=== PATIENT | female | born 1935 | race Caucasian/White ===

== ENCOUNTER 2016-08-02 09:47 | Outpatient (CLI) | payer MEDICARE ==
[2016-08-02 10:44] LABS: Anion Gap 16 mmol/L (10-20); BUN (Urea Nitrogen) 25 mg/dL (9.8-20.1); Calc. Creatinine Clearance 0 mL/min (70-130); Calcium 10.1 mg/dL (7.8-10.44); Carbon Dioxide 33 mmol/L (23-31); Chloride 91 mmol/L (98-107); Estimated GFR-MDRD 50; LDL Cholesterol, Calculated 75 mg/dL
[2016-08-02 11:20] LABS: Hemoglobin A1c 5.9 % (4.0-6.0)
[2016-08-02 11:46] LABS: #Basophils 0.1 thou/uL (0.0-0.2); #Monocytes 0.5 thou/uL (0.11-0.59); %Basophils 1.3 % (0.0-1.0); %Eosinophils 0.8 % (0.0-10.0); %Lymphocytes 21.8 % (21.0-51.0); %Monocytes 11.2 % (0.0-10.0); Hematocrit 37.4 % (36.0-47.0); Mean Platelet Volume 6.9 fL (7.4-10.4); Red Blood Cell (RBC) Count 4.03 mill/uL (4.20-5.40); White Blood Cell (WBC) Count 4.7 thou/uL (4.8-10.8)
== END 2016-08-02 09:48 | disposition home or self-care (01) ==
LOC: NAVSJIPCSP 09:47
PROVIDERS: ATTEND Internal Medicine
DX: E78.5 Hyperlipidemia, unspecified (principal); I11.0 Hypertensive heart disease with heart failure; E11.51 Type 2 diabetes mellitus with diabetic peripheral angiopathy without gangrene; I25.10 Atherosclerotic heart disease of native coronary artery without angina pectoris
CPT/HCPCS: 36415; 80048; 80061; 83036; 85025

== ENCOUNTER 2017-03-20 19:28 | Inpatient (IN) | payer MEDICARE ==
[2017-03-20] MEDS ORDERED: Acetaminophen 500 MG TAB PO PRN (21:16)
[2017-03-20] MEDS ORDERED: HumaLOG 300 UNITS/3 ML VIAL SC PRN ×2 (21:17)
[2017-03-20] MEDS ORDERED: Dextrose 5% in Water 1,000 ML IV PRN (21:17)
[2017-03-20] MEDS ORDERED: Dextrose 50% Abboject 50 ML SYRINGE SLOW IVP PRN (21:17)
[2017-03-21 05:20] LABS: Eosinophils 2 % (0-10); Hemoglobin 10.4 g/dL (12.0-16.0); Lymphocytes 26 % (21-51); MDiff Complete? YES; Mean Corpuscular HGB CONC 30.4 g/dL (32.0-36.0); Mean Corpuscular Hemoglobin 27.5 pg (27.0-31.0); Mean Corpuscular Volume 90.4 fl (81.0-99.0); Mean Platelet Volume 6.6 fL (7.4-10.4); Monocytes 17 % (0-10); Neutrophil 54 % (42-75); PLT Morphology Comment Appears Adequate; Platelet Count 206 thou/uL (130-400); RBC Distribution Width 17.1 % (11.5-14.5); RBC Morphology Normal; Red Blood Cell (RBC) Count 3.77 mill/uL (4.20-5.40); White Blood Cell (WBC) Count 3.6 thou/uL (4.8-10.8)
[2017-03-21 05:32] LABS: Anion Gap 12 mmol/L (10-20); BUN (Urea Nitrogen) 25 mg/dL (9.8-20.1); Calc. Creatinine Clearance 35 mL/min (70-130); Calcium 9.7 mg/dL (7.8-10.44); Carbon Dioxide 34 mmol/L (23-31); Chloride 94 mmol/L (98-107); Estimated GFR-MDRD 58; Glucose 97 mg/dL (83-110); Potassium 4.2 mmol/L (3.5-5.1); Sodium 136 mmol/L (136-145)
[2017-03-21] MEDS: Potassium Chloride 20 MEQ TAB PO SCH ×3 (08:47→17:01)
[2017-03-21] MEDS: Furosemide 40 MG TAB PO SCH ×2 (08:47→21:28)
[2017-03-21] MEDS: metFORMIN 500 MG TAB PO SCH ×2 (08:48→17:01)
[2017-03-21] MEDS ORDERED: rOPINIRole HCl 0.5 MG TAB PO SCH (09:00)
[2017-03-21] MEDS ORDERED: PILOCARPINE HCL 5 MG PO SCH (09:00)
[2017-03-21] MEDS ORDERED: FLU VACC QS2017-18 36 mo. & older 0.5 ML SYRINGE IM ONE (09:00)
[2017-03-21] MEDS ORDERED: rOPINIRole HCl 1 MG TAB PO SCH (09:45)
--- NOTE | 2017-03-21 14:02 | HP ---
DATE OF ADMISSION: 03/20/2017 DATE OF EXAMINATION AND DICTATION: 03/21/2017 PRINCIPAL DIAGNOSIS: Improving acute on chronic systolic congestive heart failure and deconditionin g for therapy. BRIEF HISTORY: This is a very pleasant 82-year-old female who is well known to me, but [place] moved over to the [facility] the last year and a half and apparently has had multiple admissi ons to the hospital for worsening episodes of congestive heart failure. She was admitted on 017 with leg swelling and shortness of breath and was noticed to have pleural effusion 3+ edema and acute on chronic congestive heart failure. She was treated with IV diuretics and has improved. She also has critical aortic stenosis, but family does not want any intervention. She was switched ove r to oral diuretics and has been sent here for therapy. She has lost quite a bit of weight since I last saw her, her leg swelling has pretty much resolved. She continues to have a dry hacky cough an d has been having some coughing episodes with eating. I advised speech therapy to see her and they really do not think she is safe for any p.o. intake, but family do not want a PEG tube and so she is going to be on a pureed diet with aspiration precautions and nectar thick liquids. Family aware of the risks, family wants her to be DNR and if she does not improve, they want her to go home on hosp ice. Currently, she denies any chest pain. She does have some shortness of breath. Denies any fev er or chills. Denies any nausea or vomiting. Does have poor appetite. PAST MEDICAL HISTORY: 1. Coronary artery disease, ejection fraction 55%, severe critical aortic stenosis with an aortic v alve area of 0.4. 2. Hypertension. 3. Chronic systolic congestive heart failure. 4. Diabetes mellitus type 2. 5. Dyslipidemia, unable to tolerate statin. 6. Lower extremity venous insufficiency and stasis dermatitis. 7. Status post pacemaker placement for sick sinus syndrome and atrial fibrillation. PAST SURGICAL HISTORY: 1. Coronary artery bypass grafting. 2. Pacemaker placement. ALLERGIES: STATIN. PSYCHOSOCIAL HISTORY: She quit smoking in 1982. FAMILY HISTORY: Noncontributory to current admission. MEDICATIONS: She has been admitted here with the following medications: Lasix 40 mg b.i.d., metfor min 500 mg b.i.d., Toprol-XL 50 mg b.i.d., Protonix 40 mg daily, pilocarpine 5 mg t.i.d., potassium chloride 20 mEq daily, Requip 1 mg b.i.d. REVIEW OF SYSTEMS: CARDIOVASCULAR: Denies any chest pain. Does have some shortness of breath and dyspnea on exertion. RESPIRATORY: Occasional cough, denies any hemoptysis, denies any pleuritic type chest pain. GASTROINTESTINAL: Anorexia. Denies any nausea, vomiting, diarrhea, constipation, hematemesis, wali na, or hematochezia. GENITOURINARY: Denies any frequency, urgency, dysuria or hematuria. CENTRAL NERVOUS SYSTEM: Generalized weakness. HEENT: Does have some difficulty with swallowing. PHYSICAL EXAMINATION: GENERAL: Pleasant 82-year-old female, very frail and cachectic, in no acute distress. He r spouse is in the room. VITAL SIGNS: She is afebrile. Heart rate is 86, respirations 20, oxygen saturation 98% on 2 liters , blood pressure 106/56. NEUROLOGIC: Normocephalic and atraumatic. Bitemporal muscle wasting. Pupils equally reacting to l ight. No JVD. CARDIOVASCULAR: S1, S2 plus irregularly irregular. She does have 3/6 systolic murmur heard in the aortic area. RESPIRATORY: Normal vesicular breath sounds with occasional crackles in the bases. ABDOMEN: Soft and nontender, bowel sounds heard in all quadrants. EXTREMITIES: Without cyanosis, clubbing, evidence for chronic stasis dermatitis, trace edema. CENTRAL NERVOUS SYSTEM: Grossly nonfocal except for dysphagia and generalized weakness. LABORATORY VALUES: From this morning shows a white count of 3.6, H\T\H is 10.4 and 34.1. Sodium 13 6, potassium 4.2, BUN and creatinine is 25 and 0.92, blood sugars are 115 and 109. BNP is 793.6. IMPRESSION: 1. Resolving acute on chronic systolic congestive heart failure. 2. Chronic systolic congestive heart failure. 3. Critical aortic stenosis with an area of 0.4 cm. 4. Diabetes mellitus type 2. 5. Hypertension. 6. Dyslipidemia, unable to tolerate statin. 7. Atrial fibrillation and sick sinus syndrome requiring pacemaker placement. 8. Coronary artery disease status post coronary artery bypass graft. 9. Lower extremity venous insufficiency and stasis. 10. Significant deconditioning and dysphagia. 11. DNR status. PLAN: 1. Continue current medications. 2. Heart healthy diet. 3. Pureed diet with nectar thick liquids with aspiration precautions. 4. Accu-Chek with sliding scale coverage. 5. Glucerna. 6. PlexiPulses. 7. Decubitus precautions. 8. Routine laboratory values. 9. Poor prognosis. 10. Estimated length of stay 7-10 days. 11. If she does not improve, family wants to take her home with hospice. Discussed with the patien t and spouse in detail along with the [id number] and all questions answered.
[2017-03-21] MEDS: rOPINIRole HCl 1 MG TAB PO SCH (21:28)
[2017-03-22] MEDS: Furosemide 40 MG TAB PO SCH (08:13)
[2017-03-22] MEDS: metFORMIN 500 MG TAB PO SCH ×2 (08:13→17:32)
[2017-03-22] MEDS: rOPINIRole HCl 1 MG TAB PO SCH ×2 (08:14→20:16)
[2017-03-22] MEDS: Potassium Chloride 20 MEQ TAB PO SCH ×3 (08:15→17:32)
--- NOTE | 2017-03-22 12:40 | PRG ---
DATE OF SERVICE: 03/22/2017 SUBJECTIVE: Ms. Stanley is doing well. Denies any complaints, tolerating her pureed diet. Denies any chest pain or shortness of breath, had to have a Watkins catheter placed. OBJECTIVE: VITAL SIGNS: She is afebrile, heart rate is 90, respirations are 18, oxygen saturation is 98% and b lood pressure is 105/54. CARDIOVASCULAR: S1, S2 plus. RESPIRATORY: Normal vesicular breath sounds. ABDOMEN: Soft, nontender, bowel sounds heard in all quadrants. EXTREMITIES: Without cyanosis or clubbing. CENTRAL NERVOUS SYSTEM: Generalized weakness. IMPRESSION: 1. Acute on chronic systolic congestive heart failure. 2. Paroxysmal atrial fibrillation. 3. Diabetes mellitus type 2. 4. Hypertension. 5. Dyslipidemia. 6. Restless leg syndrome. PLAN: 1. Decrease Lasix to 40 mg daily. 2. Recheck laboratory values in the morning. 3. PT, OT evaluate and treat. 4. DVT prophylaxis. 5. Decubitus precautions. 6. Nutritional support with aspiration precautions. 7. Discussed with the patient and spouse in detail and all questions answered.
[2017-03-23 05:55] LABS: Anion Gap 15 mmol/L (10-20); BUN (Urea Nitrogen) 29 mg/dL (9.8-20.1); Calc. Creatinine Clearance 36 mL/min (70-130); Calcium 9.9 mg/dL (7.8-10.44); Carbon Dioxide 35 mmol/L (23-31); Chloride 98 mmol/L (98-107); Estimated GFR-MDRD 61; Glucose 105 mg/dL (83-110); Potassium 4.6 mmol/L (3.5-5.1); Sodium 143 mmol/L (136-145)
[2017-03-23] MEDS: Furosemide 40 MG TAB PO SCH (08:27)
[2017-03-23] MEDS: metFORMIN 500 MG TAB PO SCH ×3 (08:28→18:01)
[2017-03-23] MEDS: rOPINIRole HCl 1 MG TAB PO SCH ×2 (08:28→20:21)
[2017-03-23] MEDS: Potassium Chloride 20 MEQ TAB PO SCH ×2 (08:28→12:15)
--- NOTE | 2017-03-23 13:58 | PRG ---
DATE OF SERVICE: 03/23/2017 SUBJECTIVE: Ms. Stanley is doing well. She accidentally pulled her Watkins catheter out yesterday. She has been able to void since then and we are continuing to monitor her urine output. We will montague ve a bladder scan if she has no urine output in 6 hours and if necessary, we will replace the Watkins, but seems like she is doing well at this point. She is also getting stronger and speech therapy montague s switched her back to a mechanically soft diet from this morning. OBJECTIVE: VITAL SIGNS: She is afebrile, heart rate is 84, respirations are 20, oxygen saturation is 100% on 1 .5 liters, blood pressure is 131/58, and I's and O's still negative. Her Lasix was decreased to onc e a day instead of twice a day. Her potassium will be decreased from 3 times a day to twice a day a nd we will switch her to potassium liquid as she has trouble swallowing the big pills. CARDIOVASCULAR SYSTEM: S1 and S2 plus. RESPIRATORY SYSTEM: Normal vesicular breath sounds. ABDOMEN: Soft, nontender, bowel sounds heard in all quadrants. EXTREMITIES: Chronic stasis dermatitis. No edema. LABORATORY DATA: Laboratory values from this morning shows sodium of 143, potassium is 4.6, BUN and creatinine is 29 and 0.88. Blood sugars are 117, 96, 115, and 90. BNP is down to 637. IMPRESSION: 1. Improving acute on chronic systolic congestive heart failure. 2. Coronary artery disease. 3. Atrial fibrillation, status post pacemaker placement. 4. Diabetes mellitus type 2. 5. Hypertension. 6. Dyslipidemia, unable to tolerate statins. 7. Improving deconditioning. 8. Lower extremity venous insufficiency. 9. Restless legs syndrome. PLAN: 1. Continue current medications. 2. In fact, I will cut her potassium down to once a day with her potassium being high normal and he r Lasix is down to once a day. 3. Continue nutritional support. 4. Aspiration precautions. 5. Accu-Cheks. 6. DVT prophylaxis with PlexiPulses. 7. Decubitus precautions. 8. Stress ulcer prophylaxis.
[2017-03-24] MEDS: metFORMIN 500 MG TAB PO SCH ×2 (07:57→17:36)
[2017-03-24] MEDS: Furosemide 40 MG TAB PO SCH (07:58)
[2017-03-24] MEDS: rOPINIRole HCl 1 MG TAB PO SCH ×2 (07:58→20:19)
--- NOTE | 2017-03-24 08:26 | PRG ---
DATE OF SURGERY: 03/24/2017 SUBJECTIVE: Ms. Stanley is doing well. She is tolerating her mechanically soft diet. She denies any concerns or questions. Her is in the room. Her I's and O's remain negative. Weights h ave not been documented for the last 2 days. OBJECTIVE: VITAL SIGNS: She is afebrile, heart rate 84, respirations 20, oxygen saturation is 97% on 2 liters, blood pressure is 95/53. CARDIOVASCULAR SYSTEM: S1 and S2 plus. RESPIRATORY SYSTEM: Normal vesicular breath sounds. ABDOMEN: Soft, nontender, bowel sounds heard in all quadrants. EXTREMITIES: Without cyanosis or clubbing. Chronic stasis dermatitis and venous insufficiency. CENTRAL NERVOUS SYSTEM: Improving deconditioning and dysphagia. IMPRESSION: 1. Improving acute on chronic systolic congestive heart failure. 2. Coronary artery disease, status post coronary artery bypass graft. 3. History of atrial fibrillation, status post pacemaker placement. 4. Restless leg syndrome. 5. Hypertension. 6. Dyslipidemia. 7. Deconditioning. 8. Diabetes mellitus, type 2. PLAN: 1. Daily weights. 2. Titrate oxygen. 3. Continue current medications. 4. Nutritional support with aspiration precautions. 5. Monitor Accu-Cheks. 6. PlexiPulse for DVT prophylaxis. 7. Recheck BMP and BNP in the morning. 8. Dr. Dwight Reyes on-call this weekend. 9. Discussed with patient and spouse in detail and all questions answered.
[2017-03-25 05:45] LABS: Anion Gap 13 mmol/L (10-20); BUN (Urea Nitrogen) 34 mg/dL (9.8-20.1); Calc. Creatinine Clearance 26 mL/min (70-130); Calcium 10.2 mg/dL (7.8-10.44); Carbon Dioxide 36 mmol/L (23-31); Chloride 99 mmol/L (98-107); Estimated GFR-MDRD 42; Glucose 114 mg/dL (83-110); Potassium 5.4 mmol/L (3.5-5.1); Sodium 143 mmol/L (136-145)
[2017-03-25] MEDS: rOPINIRole HCl 1 MG TAB PO SCH ×2 (08:30→21:46)
[2017-03-25] MEDS: metFORMIN 500 MG TAB PO SCH ×2 (08:30→17:23)
[2017-03-25] MEDS: Furosemide 40 MG TAB PO SCH (08:30)
[2017-03-26] MEDS: Furosemide 40 MG TAB PO SCH (08:32)
[2017-03-26] MEDS: metFORMIN 500 MG TAB PO SCH ×2 (08:32→17:06)
[2017-03-26] MEDS: rOPINIRole HCl 1 MG TAB PO SCH ×2 (08:32→20:12)
[2017-03-26 10:05] LABS: Anion Gap 15 mmol/L (10-20); BUN (Urea Nitrogen) 31 mg/dL (9.8-20.1); Calc. Creatinine Clearance 28 mL/min (70-130); Calcium 9.7 mg/dL (7.8-10.44); Carbon Dioxide 33 mmol/L (23-31); Chloride 96 mmol/L (98-107); Estimated GFR-MDRD 48; Glucose 137 mg/dL (83-110); Potassium 4.5 mmol/L (3.5-5.1); Sodium 139 mmol/L (136-145)
--- NOTE | 2017-03-26 11:23 | PRG ---
DATE OF SERVICE: 03/25/2017 SUBJECTIVE: The patient feels well, diuresing well on medications, having no shortness of breath or chest pain, is tolerating diuretic well. Weight appears to be, however, increased to 103 pounds to day, from previous weight of 102 pounds. LABORATORY DATA: Shows BUN is up to 34 and creatinine up to 1.22 from creatinine 0.88. Two days pr eviously, sodium is 143, potassium 5.4, chloride 99, bicarbonate 36, BUN 34 and creatinine 1.22. OBJECTIVE: VITAL SIGNS: Blood pressure 117/53, O2 sats 92% on room air, respirations 18, temperature 98. LUNGS: Clear. CARDIAC: Examination shows regular rhythm. No gallops or murmurs. ABDOMEN: Soft and nontender. ASSESSMENT: 1. Resolving deconditioning. 2. Resolving acute on chronic heart failure with possible inaccurate weight. 3. Worsening renal function on furosemide 40 daily. 4. Diabetes type 2, well controlled. 5. Hypertension, well controlled. PLAN: Repeat base met profile and BNP in the a.m. Continue furosemide 40 mg daily, but may need to decrease 20 daily. Continue PT and OT. Continue to monitor Accu-Cheks, but appears to be well con trolled. Continue ropinirole for restless leg.
--- NOTE | 2017-03-27 08:10 | PRG ---
DATE OF SERVICE: 03/26/2017 SUBJECTIVE: The patient felt well. No shortness of breath, no chest pain, feels weak, but is havin g no palpitations. Has responded well to diuresis. OBJECTIVE: VITAL SIGNS: Shows that her vital signs show temperature 98, pulse 85, respirations 17, O2 sat is 9 7% on 1 liter, blood pressure 114/56. LUNGS: Lungs are clear. CARDIAC: Cardiac examination shows regular rhythm. No gallops or murmurs. ABDOMEN: Soft and nontender. Weight shows that she did lose 5 pounds down from 103 to 98. LABORATORY: Laboratory shows sodium 139, potassium 4.5, chloride 96, bicarbonate 33, BUN 31, creati nine 1.09. BNP is 696. ASSESSMENT: 1. Improving acute on chronic systolic congestive heart failure with significant weight loss and wi th no deterioration of renal function 2. Stable type 2 diabetes. 3. Coronary disease, asymptomatic. 4. Underlying atrial fibrillation, status post pacemaker placement. 5. Restless leg syndrome, well controlled. PLAN: Discontinue oxygen, continue furosemide 40 mg daily, metoprolol 50 twice daily, potassium 20 mEq daily, metformin 500 twice daily. Continue PT, OT.
[2017-03-27] MEDS: Furosemide 40 MG TAB PO SCH (08:15)
[2017-03-27] MEDS: metFORMIN 500 MG TAB PO SCH ×2 (08:15→17:11)
[2017-03-27] MEDS: rOPINIRole HCl 1 MG TAB PO SCH ×2 (08:16→20:12)
--- NOTE | 2017-03-27 17:50 | PRG ---
DATE OF SERVICE: 03/27/2017 SUBJECTIVE: Ms. Stanley is doing well. She stated that she walked twice around the nurses' statio n and then went outside. She also climbed up and down the ramp, awaiting clearance from therapy for her to go home. She is off her oxygen. Denies any concerns or questions. OBJECTIVE: VITAL SIGNS: She is afebrile, heart rate is 93, respirations are 18 and blood pressure is 107/56. CARDIOVASCULAR SYSTEM: S1 and S2 plus, rate and rhythm regular. RESPIRATORY SYSTEM: Normal vesicular breath sounds. ABDOMEN: Soft and nontender. Bowel sounds heard in all quadrants. EXTREMITIES: Without cyanosis or clubbing. Chronic stasis dermatitis. CENTRAL NERVOUS SYSTEM: Improving deconditioning. LABORATORY DATA: Blood sugars are 118, 102, 115 and 94. BNP is 694. Sodium 139, potassium 4.5, BU N and creatinine are 31 and 1.09. Weight is down to 100 pounds. IMPRESSION: 1. Resolved acute on chronic systolic congestive heart failure. 2. Chronic systolic congestive heart failure. 3. Atrial fibrillation, status post pacemaker placement for coronary artery disease, without angina . 4. Restless leg syndrome. 5. Hypertension. 6. Dyslipidemia. 7. Resolved hypoxemia. 8. Resolved urinary incontinence. PLAN: 1. Continue physical therapy. 2. Continue nutritional support. 3. Monitor blood sugars. 4. An 1800-calorie heart healthy ADA diet. 5. Deep venous thrombosis prophylaxis. 6. Decubitus precautions. 7. Stress ulcer prophylaxis. 8. Anticipate discharging her home in the next few days depending upon what therapy feels, discusse d with the patient and spouse in detail and all questions answered.
[2017-03-28 04:47] VITALS: BMI 18.1
[2017-03-28 07:35] VITALS: TEMP 96.3
[2017-03-28] MEDS: Furosemide 40 MG TAB PO SCH (08:14)
[2017-03-28] MEDS: metFORMIN 500 MG TAB PO SCH (08:14)
[2017-03-28] MEDS: rOPINIRole HCl 1 MG TAB PO SCH (08:14)
[2017-03-28 11:10] VITALS: BP 120/56
--- NOTE | 2017-03-28 14:03 | DIS ---
DATE OF ADMISSION: 03/20/2017 DATE OF DISCHARGE: 03/28/2017 PRINCIPAL DIAGNOSIS: Acute on chronic systolic congestive heart failure which has resolved. SECONDARY DIAGNOSES: 1. Chronic systolic congestive heart failure. 2. Atrial fibrillation, status post pacemaker placement. 3. Hypertension, well controlled. 4. Diabetes mellitus type 2. 5. Dyslipidemia, unable to tolerate statins. 6. Lower extremity venous insufficiency and stasis dermatitis. 7. Restless legs syndrome. 8. Improved deconditioning. 9. Resolved hypoxemia. 10. Resolved urinary incontinence. COMPLICATIONS: None. ADVERSE REACTIONS: None. PROCEDURES: None. CONSULTATIONS: Physical Therapy and Occupational Therapy. HOSPITAL COURSE: The patient was admitted on 03/20/2017 after being admitted to [facility] with CHF. She was treated with IV diuretics and improved. She also has critical valvular disease for which she and the family have decided not to do any surgical intervention. She was transferred here for therapy. She has done well on her current medications and in fact her Lasix was decreased from 40 mg twice a day to once a day. Her potassium was decreased from 3 times a day to once a day. She has been ambulating in the hallways. She has been tapered off her oxygen. Her Watkins catheter was removed. She is able to go to the restroom and manage her bowels and bladder. Therapy deemed her stable for discharge and she is stable for discharge from the medical standpoint. On the day of discharge, she is Afebrile with stable vital signs CVS: S1,S2+, Irregularly Irregular RS: Normal vesicular breath sounds with rare rhonchi and basilar crackles Abd: soft, NT, BS+ Ext: No cyanosis, clubbing. chronic stasis dermatitis [employer]: Grossly nonfocal with much improved deconditioning. DISCHARGE MEDICATIONS: She is being discharged home on the following medications: Lasix 40 mg once a day, metformin 500 mg twice a day, Toprol-XL 50 mg twice a day, Protonix 40 mg once a day, pilocarpine 5 mg 3 times a day, potassium chloride suspension 20 mEq daily, Requip 1 mg b.i.d., Tylenol 500 mg q.6h. p.r.n. She is to follow up with her primary care physician in the [place] area in 5- 7 days. DIET: 1800 calorie heart healthy ADA diet. ACTIVITY: As tolerated. She is to call us with any questions or concerns. Her [id number] is not here yet to pick her up. They have been advised to call me with any questions. She states she does not need any refills. Her spouse is in the room. Discussed with patient and spouse in detail and all questions answered. Total time spent on this discharge including discussing with the patient was 35 minutes. BREANNA
== END 2017-03-28 13:44 | disposition home or self-care (01) | DRG 292 ==
LOC: NAV ACUTE 19:28
PROVIDERS: ADMIT Internal Medicine; ATTEND Internal Medicine
DX: I11.0 Hypertensive heart disease with heart failure (principal); Z68.1 Body mass index [BMI] 19.9 or less, adult; R13.10 Dysphagia, unspecified; E11.9 Type 2 diabetes mellitus without complications; I48.0 Paroxysmal atrial fibrillation; E78.5 Hyperlipidemia, unspecified; G25.81 Restless legs syndrome; I35.0 Nonrheumatic aortic (valve) stenosis; I25.10 Atherosclerotic heart disease of native coronary artery without angina pectoris; I50.23 Acute on chronic systolic (congestive) heart failure; I87.2 Venous insufficiency (chronic) (peripheral); R32 Unspecified urinary incontinence; R09.02 Hypoxemia; R63.4 Abnormal weight loss; Z95.2 Presence of prosthetic heart valve; Z95.1 Presence of aortocoronary bypass graft; Z66 Do not resuscitate; Z87.891 Personal history of nicotine dependence; Z95.0 Presence of cardiac pacemaker
CPT/HCPCS: 36415; 36416; 80048; 83880; 85025; G8978-GP-CJ; G8979-GP-CI; G8996-GN-CK; G8996-GN-CN; G8997-GN-CK; G8997-GN-CM